=== PATIENT | female | born 1975 | race Caucasian/White ===

== ENCOUNTER 2018-09-02 13:10 | Inpatient (IN) | payer MEDICAID ==
[2018-09-02] MEDS ORDERED: GLUCOSE GEL 15 GRAM TUBE BUCCAL (14:30)
[2018-09-02] MEDS ORDERED: GLUCAGON 1 MG INJ IM (14:30)
[2018-09-02] MEDS ORDERED: GLUCOSE GEL 15 GRAM TUBE PO ×2 (14:30)
[2018-09-02] MEDS ORDERED: ACETAMINOPHEN 325 MG TAB PO (14:30)
[2018-09-02] MEDS ORDERED: DEXTROSE 50% 50 ML SYRINGE IV ×2 (14:30)
[2018-09-02 14:40] LABS: ADD MAN DIFF? NO
[2018-09-02 14:43] LABS: WHITE BLOOD COUNT 6.9 10^3/ul (4.8-10.8)
[2018-09-02 14:43] LABS: BASOPHILS % 0.3 % (0.0-2.0); EOSINOPHILS # 0.1 10^3/ul (0.0-0.5); HEMATOCRIT 39.4 % (37.0-47.0); HEMOGLOBIN 12.8 g/dl (12.0-16.0); LYMPHOCYTES # 1.3 10^3/ul (0.8-2.9); LYMPHOCYTES % 18.3 % (15.0-51.0); MEAN CORPUSCULAR HEMOGLOBIN 28.6 pg (29.0-33.0); MEAN CORPUSCULAR HGB CONC 32.5 g/dl (32.0-37.0); MEAN CORPUSCULAR VOLUME 88.1 fl (82.0-101.0); MEAN PLATELET VOLUME 9.9 fl (7.4-10.4); MONOCYTE # 0.5 10^3/ul (0.3-0.9); MONOCYTES % 7.5 % (0.0-11.0); NEUTROPHILS % 71.5 % (39.0-77.0); PLATELET COUNT 197 10^3/UL (140-415); RED BLOOD COUNT 4.47 10^6/ul (4.20-5.40)
[2018-09-02 15:02] LABS: ALANINE AMINOTRANSFERASE 14 IU/L (13-69); ALBUMIN/GLOBULIN RATIO 1.11; ALKALINE PHOSPHATASE 119 IU/L (42-121); ANION GAP 6 (5-13); ASPARTATE AMINO TRANSFERASE 20 IU/L (15-46); BILIRUBIN,INDIRECT 0.1 mg/dl (0-1.1); BILIRUBIN,TOTAL 0.1 mg/dl (0.2-1.3); BLOOD UREA NITROGEN 3 mg/dl (7-20); CALCIUM 8.3 mg/dl (8.4-10.2); CARBON DIOXIDE 24 mmol/L (21-31); CHLORIDE 108 mmol/L (97-110); Estimated GFR > 60 mL/min (>60); GLUCOSE 96 mg/dl (70-220); POTASSIUM 3.8 mmol/L (3.5-5.1); SODIUM 138 mmol/L (135-144); TOTAL PROTEIN 5.7 g/dl (6.1-8.1)
[2018-09-02 16:21] LABS: ADD UMIC NO; UR ASCORBIC ACID 20 mg/dL (NEGATIVE); UR BILIRUBIN (Dip) NEGATIVE (NEGATIVE); UR BLOOD (Dip) NEGATIVE (NEGATIVE); UR CLARITY CLEAR (CLEAR); UR COLOR YELLOW (YELLOW); UR GLUCOSE (Dip) 1+ mg/dL (NEGATIVE); UR KETONES (Dip) NEGATIVE (NEGATIVE); UR LEUKOCYTE ESTERASE (Dip) NEGATIVE Leu/ul (NEGATIVE); UR NITRITE (Dip) NEGATIVE (NEGATIVE); UR SPECIFIC GRAVITY (Dip) 1.015 (1.003-1.030); UR TOTAL PROTEIN (Dip) NEGATIVE (NEGATIVE); UR UROBILINOGEN (Dip) NEGATIVE (NEGATIVE)
[2018-09-02] MEDS ORDERED: ACCU-CHEK XX (20:05)
[2018-09-02] MEDS: ACCU-CHEK XX (20:05)
[2018-09-03] MEDS ORDERED: FERROUS SULFATE (EC) 325 MG TAB PO (09:00)
[2018-09-03] MEDS ORDERED: PRENATAL VITAMIN PO (09:00)
[2018-09-03] MEDS: FERROUS SULFATE (EC) 325 MG TAB PO (09:40)
[2018-09-03] MEDS: DOCUSATE SODIUM 100 MG CAP PO (09:40)
[2018-09-03] MEDS: PRENATAL VITAMIN PO (09:40)
[2018-09-03] MEDS: ACCU-CHEK XX ×3 (10:05→20:05)
[2018-09-03] MEDS: metFORMIN 500 MG TAB PO (20:47)
[2018-09-04] MEDS: FERROUS SULFATE (EC) 325 MG TAB PO (08:30)
[2018-09-04] MEDS: PRENATAL VITAMIN PO (08:30)
[2018-09-04] MEDS: metFORMIN 500 MG TAB PO ×2 (08:30→20:38)
[2018-09-04] MEDS: DOCUSATE SODIUM 100 MG CAP PO (08:30)
[2018-09-04] MEDS: ACCU-CHEK XX ×3 (10:54→20:10)
[2018-09-05] MEDS: PRENATAL VITAMIN PO (08:15)
[2018-09-05] MEDS: FERROUS SULFATE (EC) 325 MG TAB PO (08:15)
[2018-09-05] MEDS: metFORMIN 500 MG TAB PO (08:15)
[2018-09-05] MEDS: DOCUSATE SODIUM 100 MG CAP PO (08:15)
[2018-09-05] MEDS: ACCU-CHEK XX ×2 (10:47→14:39)
== END 2018-09-05 18:55 | disposition home or self-care (01) | DRG 833 ==
LOC: PP1 13:10
DX: O24.419 Gestational diabetes mellitus in pregnancy, unspecified control (principal); O09.523 Supervision of elderly multigravida, third trimester; Z3A.36 36 weeks gestation of pregnancy; Z91.11 Patient's noncompliance with dietary regimen
CPT/HCPCS: 76818; 80053; 81003; 82962; 83036; 85025; 87086

== ENCOUNTER 2018-09-17 19:36 | Inpatient (IN) | payer MEDICAID ==
[2018-09-17] MEDS: MINERAL OIL LIGHT 10 ML VIAL TOP (05:25)
[2018-09-17] MEDS: LACTATED RINGER'S 1,000 ML IV ×2 (20:17→21:31)
[2018-09-17 20:30] LABS: ADD MAN DIFF? NO
[2018-09-17] MEDS ORDERED: LIDOCAINE 1% (MPF) 30 ML INJ INJ (20:30)
[2018-09-17] MEDS ORDERED: OXYTOCIN 30 UNITS/LR 500 ML IV ×2 (20:30→21:00)
[2018-09-17] MEDS ORDERED: METHYLERGONOVINE 0.2 MG INJ IM (20:30)
[2018-09-17] MEDS ORDERED: OXYCODONE/ASPIRIN (4.88/325) TAB PO (20:30)
[2018-09-17] MEDS ORDERED: MISOPROSTOL 200 MCG TAB PR (20:30)
[2018-09-17] MEDS ORDERED: CARBOPROST 250 MCG INJ IM (20:30)
[2018-09-17] MEDS ORDERED: IBUPROFEN 600 MG TAB PO (20:30)
[2018-09-17] MEDS: BUTORPHANOL 2 MG INJ IV (20:32)
[2018-09-17 20:37] LABS: WHITE BLOOD COUNT 9.4 10^3/ul (4.8-10.8)
[2018-09-17 20:37] LABS: BASOPHILS % 0.3 % (0.0-2.0); EOSINOPHILS # 0.1 10^3/ul (0.0-0.5); EOSINOPHILS % 0.6 % (0.0-7.0); LYMPHOCYTES # 1.4 10^3/ul (0.8-2.9); LYMPHOCYTES % 14.4 % (15.0-51.0); MEAN CORPUSCULAR HEMOGLOBIN 28.3 pg (29.0-33.0); MEAN CORPUSCULAR HGB CONC 33.3 g/dl (32.0-37.0); MEAN CORPUSCULAR VOLUME 84.8 fl (82.0-101.0); MEAN PLATELET VOLUME 10.4 fl (7.4-10.4); MONOCYTE # 0.6 10^3/ul (0.3-0.9); MONOCYTES % 6.6 % (0.0-11.0); NEUTROPHIL # 7.2 10^3/ul (1.6-7.5); NEUTROPHILS % 77.5 % (39.0-77.0); PLATELET COUNT 243 10^3/UL (140-415); RED BLOOD COUNT 4.95 10^6/ul (4.20-5.40); RED CELL DISTRIBUTION WIDTH 13.7 % (11.5-14.5)
[2018-09-17 20:48] LABS: INR 0.84; PROTIME 11.6 Sec (11.9-14.9); PT RATIO 0.9
[2018-09-17 20:49] LABS: PARTIAL THROMBOPLASTIN TIME 26.9 Sec (23.0-35.0)
[2018-09-17] MEDS ORDERED: FENTAnyl 2MCG/ML-ROPIV 0.2% 100 ML (21:06)
[2018-09-17 21:12] LABS: RAPID PLASMA REAGIN NONREACTIVE (NR)
[2018-09-17 21:24] LABS: HEPATITIS B SURFACE ANTIGEN NEGATIVE (NEGATIVE)
[2018-09-17] MEDS ORDERED: NALOXONE (0.4 MG/ML) INJ IV (21:30)
[2018-09-17] MEDS ORDERED: ONDANSETRON 4 MG INJ IV (21:30)
[2018-09-17] MEDS ORDERED: DIPHENHYDRAMINE 50 MG INJ IV (21:30)
[2018-09-17] MEDS: FENTAnyl 2MCG/ML-ROPIV 0.2% 100 ML BAG EPI (22:05)
[2018-09-17] MEDS: metFORMIN 500 MG TAB PO (22:25)
[2018-09-18] MEDS: OXYTOCIN 30 UNITS/LR 500 ML IV ×3 (05:40→08:00)
[2018-09-18] MEDS ORDERED: MISOPROSTOL 200 MCG TAB PR (06:00)
[2018-09-18] MEDS ORDERED: CARBOPROST 250 MCG INJ IM (06:00)
[2018-09-18] MEDS ORDERED: METHYLERGONOVINE 0.2 MG INJ IM (06:00)
[2018-09-18] MEDS ORDERED: HYDROCODONE/APAP (5/325) TAB PO (06:00)
[2018-09-18] MEDS ORDERED: OXYTOCIN 30 UNITS/LR 500 ML IV (06:00)
[2018-09-18] MEDS: LACTATED RINGER'S 1,000 ML IV* ×2 (08:00→13:55)
[2018-09-18] MEDS: IBUPROFEN 600 MG TAB PO ×3 (08:00→19:12)
[2018-09-18] MEDS: LANOLIN HPA 1 PKT TOP (08:54)
[2018-09-18] MEDS: BENZOCAINE 20% 56 ML SPRAY TOP (08:54)
[2018-09-19] MEDS: IBUPROFEN 600 MG TAB PO ×4 (05:09→23:43)
[2018-09-19 06:33] LABS: ADD MAN DIFF? NO
[2018-09-19 06:41] LABS: BASOPHILS % 0.3 % (0.0-2.0); EOSINOPHILS # 0.2 10^3/ul (0.0-0.5); EOSINOPHILS % 2.9 % (0.0-7.0); HEMATOCRIT 33.1 % (37.0-47.0); HEMOGLOBIN 10.9 g/dl (12.0-16.0); LYMPHOCYTES # 1.6 10^3/ul (0.8-2.9); LYMPHOCYTES % 21.5 % (15.0-51.0); MEAN CORPUSCULAR HEMOGLOBIN 29.1 pg (29.0-33.0); MEAN CORPUSCULAR HGB CONC 32.9 g/dl (32.0-37.0); MEAN CORPUSCULAR VOLUME 88.5 fl (82.0-101.0); MEAN PLATELET VOLUME 10.7 fl (7.4-10.4); MONOCYTE # 0.5 10^3/ul (0.3-0.9); MONOCYTES % 6.3 % (0.0-11.0); NEUTROPHILS % 68.6 % (39.0-77.0); PLATELET COUNT 223 10^3/UL (140-415); RED BLOOD COUNT 3.74 10^6/ul (4.20-5.40)
[2018-09-19 06:41] LABS: WHITE BLOOD COUNT 7.3 10^3/ul (4.8-10.8)
[2018-09-20] MEDS: IBUPROFEN 600 MG TAB PO ×2 (05:44→12:38)
[2018-09-20] MEDS: DIPHTH/TET/ACEL PERTUSS (ADULT) 0.5 ML VIAL IM* (09:00)
== END 2018-09-20 18:00 | disposition home or self-care (01) | DRG 807 ==
LOC: OBT 19:36 → PP1 09-18 08:06 → L-D 19:36 → OBT 20:02 → L-D 20:02
PROVIDERS: Obstetrics & Gynecology
PROC: 10E0XZZ Delivery of Products of Conception, External Approach (ICD-10-PCS; principal; 2018-09-18)
PROC: 0W8NXZZ Division of Female Perineum, External Approach (ICD-10-PCS; 2018-09-18)
DX: O24.429 Gestational diabetes mellitus in childbirth, unspecified control (principal); Z37.0 Single live birth; O34.73 Maternal care for abnormality of vulva and perineum, third trimester; O99.214 Obesity complicating childbirth; E66.9 Obesity, unspecified; Z3A.38 38 weeks gestation of pregnancy
CPT/HCPCS: 76815; 82962; 85025; 85610; 85730; 86592; 86850; 86900; 86901; 87340